=== PATIENT | male | born 1975 | race Asian ===

== ENCOUNTER 2024-01-21 11:13 | Day surgery (SDC) | payer OTHER ==
[~2024-01-21] VITALS: Ht 172.7 cm; Wt 76.2 kg
[2024-01-21] MEDS ORDERED: ONDANSETRON HCL 4 MG/2 ML VIAL ONE (12:09)
[2024-01-21] MEDS ORDERED: LIDOCAINE 2% (LOCAL ANESTH.) PF 5ml SDV ONE (12:09)
[2024-01-21] MEDS ORDERED: DexAMETHasone SOD PHOS 10MG/1ML VIAL INJ ONE (12:09)
[2024-01-21] MEDS ORDERED: KETOROLAC TROMETH 30 MG/ML 1ML VIAL ONE (12:09)
[2024-01-21] MEDS ORDERED: LIDOCAINE 1% INJ PF 5ML AMP ONE (12:09)
[2024-01-21] MEDS ORDERED: KETAMINE 50mg/ML 1ml syringe ONE (12:10)
[2024-01-21] MEDS ORDERED: PROPOFOL 10 MG/ML 20 ML IV ONE (12:10)
[2024-01-21] MEDS ORDERED: GLYCOPYRROLATE 0.2 MG/ML 1ML VIAL ONE (12:10)
[2024-01-21] MEDS ORDERED: SUGAMMADEX 200mg/2ml Vial (100MG/ML) IV ONE (12:10)
[2024-01-21] MEDS ORDERED: ROCURONIUM 10MG/ML 10ML VIAL IV ONE (12:10)
[2024-01-21] MEDS ORDERED: ceFAZolin 2 GM/D5W100ml 100 ML IV ONE (12:17)
[2024-01-21] MEDS: ACETAMINOPHEN IV 1000 MG/100ML (10MG/ML) IV ONE (13:52)
[2024-01-21] MEDS: GABAPENTIN 400 MG CAP PO ONE (13:52)
[2024-01-21] MEDS: CELECOXIB 100 MG CAP PO ONE (13:52)
[2024-01-21] MEDS ORDERED: BUPIVACAINE HCL 0 ML ONE (13:52)
[2024-01-21] MEDS ORDERED: ROPIVACAINE 0.5% (5MG/ML) 20ML AMPULE IJ ONE (13:54)
[2024-01-21] MEDS ORDERED: fentaNYL CITRATE 100 MCG/2 ML VL ONE (14:05)
[2024-01-21] MEDS ORDERED: EPINEPHrine HCL 1 MG/1 ML AMP ONE ×2 (14:08→14:53)
[2024-01-21] MEDS ORDERED: ePHEDrine SULFATE 50 MG/ML AMP ONE (14:54)
[2024-01-21] MEDS: ROPIVACAINE 0.5% (5MG/ML) 20ML AMPULE IJ ONE (15:35)
--- NOTE | 2024-01-21 15:49 | DVHOP2 ---
Operative Report - 2 Report Details Date: 01/21/24 Preop Diagnosis: Right shoulder rotator cuff tear, impingement Postop Diagnosis: Right shoulder impingement, rotator cuff tear, labral fraying Surgeon: Jerel Galvez MD Cleaner [employer]pet [employer] Upholstery: Corey NELSON Anesthesiologist: Ra Ridley Anesthesia: General, Regional Implant: Arthrex 4.75 mm SwiveLock anchor [employer] Consent: The patient was informed of the risks and benefits of the procedure. These include but are not limited to complications of anesthesia, postoperative infection, incomplete relief of symptoms, recurrence of symptoms, damage to blood vessels, nerves and tendons, deep venous thrombosis, pulmonary embolism and possible need for repeat surgery in the future. Complications: None Estimated Blood Loss: 5 cc Fluids: See anesthesia record Findings: Normal passive range of motion, no instability. Arthroscopically cartilaginous surfaces were intact. He did have undersurface fraying of the supraspinatus at the articular side the biceps was intact there was also fraying and superior tear of the subscapularis he had subacromial bursitis and some mild fraying of the rotator cuff on the bursal side Indications for Surgery: Right shoulder pain, impingement with MRI confirmed impingement and partial rotator cuff tear Name of Procedure Performed Right shoulder arthroscopy, arthroscopic rotator cuff repair, labral and rotator cuff debridement, subacromial decompression Procedure Details Procedure Details: Patient was brought to the operating room after being given regional block in preop and placed on the table in supine position. He was given general anes thetic and transferred to the lateral decubitus position with the right shoulder up. Axillary roll applied. Beanbag used a stabilized position. Lower extremities well padded. Preop patient received IV Ancef. Right shoulder and upper extremity were prepped and draped in sterile fashion. He was placed in longitudinal traction with 10 lb with flexion and abduction. Surgical time-out was performed verifying patient, laterality, and procedure. I inserted a spinal needle via posterior approach intra-articularly then injected 50 cc normal saline then made my posterior portal and entered the joint with blunt cannula and trocar and began my inspection. I made an anterior portal in the rotator interval using spinal needle for guidance switching stick and inserted purple cannula. I then used this cannula to probe the structures with findings noted above. I used a shaver to debride the rotator cuff undersurface tear and the superior labral fraying as well as some of the superior edge fraying of the subscapularis. Also used radiofrequency device to prepare the insertion point for the rotator cuff repair. I then used a scorpion and placed inverted mattress into the superior limb of the subscap. I then punched with a silver punch and stabilized the repair with a SwiveLock anchor. Stability verified and then the anchoring stitch was removed. The sutures were cut with a suture cutter. I used a spinal needle to puncture the area of the articular fraying of the supraspinatus so I could identify it at the bursal side. I suctioned the intra-articular space as dry as possible and redirected my posterior cannula in the subacromial space. I made a lateral portal then used the shaver to perform subacromial bursectomy. I thoroughly inspected and probed the cuff pain a ttention particularly to where the spinal needle head appears the supraspinatus and did not feel that there was sufficient pathology to justify any type of repair. I used the radiofrequency device to remove periosteum from the undersurface of the acromion and the do a partial release of the CA ligament. I used a shaver to smooth out the undersurface of the acromion. I then suctioned the space as dry as possible. Portal sites closed with nylon. Wounds dressed sterilely. Shoulder immobilizer applied. Patient tolerated the procedure well was brought to recovery room in stable condition. Condition Stable Disposition Home JEREL GALVEZ MD Jan 21, 2024 15:49
[2024-01-21 16:05] VITALS: RESP 13; TEMP 97.2; O2SAT 97
[2024-01-21] MEDS ORDERED: hydrALAZINE HCL 20 MG/ML VL IV PRN (16:30)
[2024-01-21] MEDS ORDERED: MIDAZOLAM HCL 2MG/2ML 2ml VIAL (1mg/ml) IV PRN (16:30)
[2024-01-21] MEDS ORDERED: ePHEDrine SULFATE 50 MG/ML AMP IV PRN (16:30)
[2024-01-21] MEDS ORDERED: HYDROmorphone HCL 2 MG/ML VL/or syr IV PRN (16:30)
[2024-01-21] MEDS ORDERED: ONDANSETRON HCL 4 MG/2 ML VIAL IV ONE (16:30)
[2024-01-21] MEDS ORDERED: KETOROLAC TROMETH 30 MG/ML 1ML VIAL IV ONE (16:30)
[2024-01-21] MEDS ORDERED: MORPHINE SULFATE 4 MG/ML SYR/VIAL IV PRN (16:30)
[2024-01-21 16:46] VITALS: BP 139/67; PULSE 61; RESP 14; O2SAT 95
== END 2024-01-21 16:55 | disposition home or self-care (01) ==
LOC: SUR 11:13
PROVIDERS: ATTEND Orthopaedic Surgery
DX: M75.111 Incomplete rotator cuff tear or rupture of right shoulder, not specified as traumatic (principal); M25.811 Other specified joint disorders, right shoulder; M75.51 Bursitis of right shoulder
CPT/HCPCS: 29826; 29827; C1713; J0171; J1100; J1885; J2003; J2405; J2704; J2795; J3010; A4565; J0131; J3490